=== PATIENT | male | born 1985 | race Caucasian/White ===

== ENCOUNTER 2017-01-11 12:46 | Day surgery (SDC) | payer OTHER ==
[2017-01-11] MEDS ORDERED: ONDANSETRON HCL INJ/PF 4 MG/2 ML SDV ONE (13:09)
[2017-01-11] MEDS ORDERED: PROPOFOL INJ 200 MG/20 ML VIAL IV ONE (13:09)
[2017-01-11] MEDS ORDERED: DEXAMETHASONE SOD PHOS INJ 10 MG/1 ML VIAL ONE (13:09)
[2017-01-11] MEDS ORDERED: HYDROMORPHONE HCL INJ/PF 2 MG/ML AMPULE ONE (13:09)
[2017-01-11] MEDS ORDERED: MIDAZOLAM 2 MG/2 ML INJ ONE (13:09)
[2017-01-11] MEDS ORDERED: SUCCINYLCHOLINE CHLORIDE INJ 200 MG/10 ML VIAL ONE (13:10)
[2017-01-11] MEDS ORDERED: LIDOCAINE 2%/EPINEPHRINE INJ 20 ML VIAL ONE (13:32)
[2017-01-11] MEDS ORDERED: OXYMETAZOLINE HCL 0.05% NASAL SPRAY 15 ML BOTTLE ONE (13:32)
[2017-01-11] MEDS ORDERED: HYDROCODONE/ACETAMINOPHEN 5-325 MG TABLET ONE (15:21)
--- NOTE | 2017-01-11 15:53 | SURGICARE OPERATIVE REPORT E ---
[facility] NAME: AMBROSIO CHILEL AGE: 31Y DATE OF SURGERY: 01/11/2017 ROOM: PREOPERATIVE DIAGNOSES: 1. Right eustachian tube dysfunction. 2. Bilateral inferior turbinate hypertrophy. POSTOPERATIVE DIAGNOSES: 1. Right eustachian tube dysfunction. 2. Bilateral inferior turbinate hypertrophy. PROCEDURES: 1. Right side eustachian tube balloon dilation. 2. Bilateral submucous reduction of the inferior turbinates. 3. Bilateral therapeutic outfracture of the inferior turbinates. SURGEON: PAULA MUNGUIA M.D. ANESTHESIA: General endotracheal. ESTIMATED BLOOD LOSS: 5 mL. COMPLICATIONS: None. INTRAOPERATIVE FINDINGS: 1. Bilateral inferior turbinate hypertrophy. 2. Slightly posterior pad lymphoid hypertrophy of the eustachian tube. INDICATIONS FOR PROCEDURE: A 31-year-old male with chronic right ear pressure and eustachian tube dysfunction. This was relieved partially by a trial myringotomy in the office. We discussed the options, benefits, and drawbacks of both myringotomy tube placement and eustachian tube balloon dilation. We opted to perform the latter. PROCEDURE IN DETAIL: The patient was met in the preoperative holding area. All questions were answered and consent was verified. He was then brought back to the operating room and placed supine on the operating room table and general endotracheal anesthesia was induced without difficulty. The table was turned for endoscopic surgery and the nasal cavity was decongested with oxymetazoline. He was prepped and draped in the standard fashion. A preoperative time out was performed. This procedure was performed under 30-degree rigid endoscopic guidance. The scope was advanced to the nasopharynx and eustachian tube was visualized. An Acclarent spin balloon system with a frontal attachment was then passed to the nasopharynx under endoscopic guidance. The balloon was then threaded up the right eustachian tube under direct visualization and inflated to 12 atmospheres of pressure for 3 minutes. The balloon was then deflated and withdrawn. There was minimal bleeding in the nasopharynx which was suctioned, and the inferior turbinates were reduced submucosally using a Coblator wand. Lesions were created of 10 seconds each from cranial to caudal direction. This was carried out bilaterally. The turbinate bones were then outfractured with a [place] elevator. The nasopharynx was suctioned once again and he was turned over to the anesthesia team for reversal and extubation. He tolerated the procedure well. DICTATING PHYSICIAN: PAULA MUNGUIA M.D. [id number] PHY#: [id number] ID: [id number] JOB#: [id number] ACCT: [id number] cc:PAULA MUNGUIA M.D. >
== END 2017-01-11 16:11 | disposition home or self-care (01) ==
LOC: SC 12:46
PROVIDERS: ATTEND Otolaryngology
PROC: 09BL7ZZ Excision of Nasal Turbinate, Via Natural or Artificial Opening (ICD-10-PCS; 2017-01-11)
PROC: 097F8ZZ Dilation of Right Eustachian Tube, Via Natural or Artificial Opening Endoscopic (ICD-10-PCS; 2017-01-11)
PROC: 09SL7ZZ Reposition Nasal Turbinate, Via Natural or Artificial Opening (ICD-10-PCS; principal; 2017-01-11 13:45)
DX: H69.81 Other specified disorders of Eustachian tube, right ear (principal); J34.3 Hypertrophy of nasal turbinates
CPT/HCPCS: 30140; 69799; J2250; J3490 ×2; J1170; J0330; J2405; J2704; J1100; 160

== ENCOUNTER → 2018-06-13 | Outpatient (CLI) | payer OTHER ==
--- NOTE | 2018-06-13 16:59 | RADIOLOGY REPORT (SQ) ---
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 TECHNIQUE: CT scan of the chest performed using helical scanning technique with dynamic intravenous contrast injection. Images reviewed with lung, soft tissue and bone windows. Reconstructed coronal and sagittal MPR images reviewed. All images stored on PACS. All CT scanners at this facility use dose modulation, iterative reconstruction, and/or weight based d osing when appropriate to reduce radiation dose to as low as reasonably achievable (ALARA). [facility]: Dose Right [facility]: CareDose [facility]: Dose Right [facility]: Teradose 4D [facility]: SocialCompare CONTRAST TYPE AND DOSE: contrast/concentration: Isovue 370.00 mg/ml; Total Contrast Delivered: 80.0 ml; Total Saline Delivered: 55.0 ml RENAL FUNCTION: None required. The patient is less than 50 years old. RADIATION DOSE: CT Rad equipment meets quality standard of care and radiation dose reduction techniq ues were employed. CTDIvol: 6.0 mGy. DLP: 229 mGy-cm. . LIMITATIONS: None. FINDINGS: LUNGS AND PLEURA: No opacities, nodules, masses. No pneumothorax. No effusions. HILAR AND MEDIASTINAL STRUCTURES: No identified masses or abnormal nodes. HEART AND VASCULAR STRUCTURES: No aneurysm or dissection. No central pulmonary emboli. No pericardi al effusion. HARDWARE: None in the chest. UPPER ABDOMEN: No significant findings. Limited exam. THYROID AND OTHER SOFT TISSUES: No masses. No adenopathy. BONES: No significant finding. OTHER: No other significant finding. IMPRESSION: NORMAL CT OF THE CHEST WITH IV CONTRAST. TECHNICAL DOCUMENTATION: JOB ID: [id number] Quality ID # [id number]: Final reports with documentation of one or more dose reduction techniques (e.g., Au tomated exposure control, adjustment of the mA and/or kV according to patient size, use of iterative reconstruction technique) 2010 [employer]- All Rights Reserved Reading location - IP/workstation name: [email or web address]
== END ==
LOC: RAD 14:53
PROVIDERS: ATTEND Internal Medicine
DX: C49.21 Malignant neoplasm of connective and soft tissue of right lower limb, including hip (principal)
CPT/HCPCS: 71260